=== PATIENT | female | born 1945 | race Caucasian/White ===

== ENCOUNTER → 2016-07-17 | Outpatient (CLI) | payer OTHER ==
[2015-05-01 06:33] VITALS: BP 150/71
[2016-07-17 08:27] LABS: BASOPHILS % (AUTO) 0.7 % (0.2-1.0); EOSINOPHILS # (AUTO) 0.2 x10^3/uL (0.0-0.2); EOSINOPHILS % (AUTO) 3.3 % (0.9-2.9); HEMATOCRIT 41.8 % (36.0-47.0); HEMOGLOBIN 14.1 g/dL (12.0-16.0); LYMPHOCYTES # (AUTO) 1.7 X10^3/uL (1.3-2.9); LYMPHOCYTES % (AUTO) 26.8 % (21.0-51.0); MEAN CORPUSCULAR HEMOGLOBIN 29.3 pg (27.0-34.0); MEAN CORPUSCULAR HGB CONC 33.8 g/dL (33.0-35.0); MEAN CORPUSCULAR VOLUME 86.7 fL (80.0-100.0); MEAN PLATELET VOLUME 7.6 fL (7.4-11.0); MONOCYTES # (AUTO) 0.5 x10^3/uL (0.3-0.8); MONOCYTES % (AUTO) 7.1 % (0.0-13.0); NEUTROPHILS % (AUTO) 62.1 % (42.0-75.0); PLATELET COUNT 233 X10^3/uL (150.0-450.0); RED BLOOD COUNT 4.82 X10^6/uL (3.5-5.4); RED CELL DISTRIBUTION WIDTH 13.2 % (11.6-16.5); WHITE BLOOD COUNT 6.5 X10^3/uL (3.6-10.0)
[2016-07-17 08:47] LABS: ALANINE AMINOTRANSFERASE 23 Units/L (12-78); ALBUMIN 3.4 g/dL (3.4-5.0); ALKALINE PHOSPHATASE 64 Units/L (46-116); ASPARTATE AMINO TRANSFERASE 18 Units/L (15-37); BILIRUBIN,DIRECT 0.12 mg/dL (0-0.2); BLOOD UREA NITROGEN 12 mg/dL (7-18); CALCIUM 9.3 mg/dL (8.5-10.1); CARBON DIOXIDE 31.8 mmol/L (21-32); CHLORIDE 104 mmol/L (98-107); CHOL/HDL RATIO 4.9 (0.0-5.0); CHOLESTEROL 202 mg/dL (0-200); CREATININE 0.79 mg/dL (0.55-1.02); GLUCOSE 99 mg/dL (65-99); HDL CHOLESTEROL 41 mg/dL (40-60); SODIUM 144 mmol/L (136-145); T4 (THYROXINE) 11.2 ug/dL (4.7-13.3); TOTAL PROTEIN 7.7 g/dL (6.4-8.2); TRIGLYCERIDES 134 mg/dL (0-150); TSH (3RD GENERATION) 2.406 uIU/mL (0.358-3.74); eGFR BLACK RACES > 60 (>60); eGFR NON BLACK RACES > 60 (>60)
== END ==
LOC: LAB 08:04
PROVIDERS: ATTEND Internal Medicine Cardiovascular Disease
DX: R42 Dizziness and giddiness (principal); I10 Essential (primary) hypertension; Z79.899 Other long term (current) drug therapy
CPT/HCPCS: 36415; 80048; 80061; 80076; 84436; 84443; 85025

== ENCOUNTER → 2016-08-20 | Outpatient (CLI) | payer OTHER ==
[2015-05-01 06:33] VITALS: BP 150/71
--- NOTE | 2016-08-20 11:11 | RAD ---
HISTORY: Pain left hip, nontraumatic Study: Left hip two views, AP pelvis Comparison: None Findings: A single frontal view of the pelvis demonstrates the pelvic ring to be intact. No evidence for acut e cortical disruption or dislocation of the hip can be observed. Frog leg views of the hip fails to demonstrate evidence for fracture or significant joint abnormality. Impression: 1. Negative exam. Reported By:
--- NOTE | 2016-08-21 10:08 | RAD ---
HISTORY: Low back pain and lumbar spondylosis Study: Three views of the lumbar spine Comparison: None Findings: Images demonstrate 5 non rib-bearing lumbar vertebral bodies. Levoscoliosis of the lumbar spine is n oted. The visualized bony structures demonstrate diffuse osteopenia. Allowing for the limitations of osteopenia and scoliosis the lumbar vertebral body heights are relatively maintained. Degenerative facet changes are seen throughout the lumbar spine. Multilevel intervertebral disc space narrowing a nd osteophytosis are demonstrated as well. Atherosclerotic changes are seen within the visualized ao rta. Surgical clips project over the right upper quadrant of the abdomen and right hemipelvis. A mod erate to large amount of stool is seen within the visualized colon. Correlation with CT and or MRI m ay be helpful as clinically indicated. IMPRESSION: 1. Multilevel degenerative changes as noted above. Reported By:
== END ==
LOC: RAD 10:18
PROVIDERS: ATTEND Physical Medicine & Rehabilitation
DX: M25.552 Pain in left hip (principal); M47.816 Spondylosis without myelopathy or radiculopathy, lumbar region
CPT/HCPCS: 72100; 73501

== ENCOUNTER → 2016-09-29 | Outpatient (CLI) | payer OTHER ==
[2015-05-01 06:33] VITALS: BP 150/71
[2016-09-29 10:39] LABS: ALANINE AMINOTRANSFERASE 21 Units/L (12-78); ALBUMIN 3.4 g/dL (3.4-5.0); ALKALINE PHOSPHATASE 64 Units/L (46-116); ASPARTATE AMINO TRANSFERASE 16 Units/L (15-37); BLOOD UREA NITROGEN 9 mg/dL (7-18); CALCIUM 8.6 mg/dL (8.5-10.1); CARBON DIOXIDE 29.7 mmol/L (21-32); CHLORIDE 105 mmol/L (98-107); COR NA(FOR HYPERGLY) 142 mmol/L (136-145); CREATININE 0.81 mg/dL (0.55-1.02); GLUCOSE 122 mg/dL (65-99); SODIUM 141 mmol/L (136-145); TOTAL PROTEIN 7.4 g/dL (6.4-8.2); eGFR BLACK RACES > 60 (>60); eGFR NON BLACK RACES > 60 (>60)
== END ==
LOC: LAB 10:00
PROVIDERS: ATTEND Nurse Practitioner Family
DX: R53.83 Other fatigue (principal)
CPT/HCPCS: 36415; 80053

== ENCOUNTER 2016-10-07 12:41 | Emergency (ER) | payer OTHER ==
[2016-10-07 12:46] VITALS: BMI 24.5
--- NOTE | 2016-10-07 13:32 | DR.GENAD ---
HPI - PCP Primary Care Physician: KRISTA - Complaint/Symptoms Chief Complaint Doctors Comments: Patient atdmits to cough for 4-6 months. Denies history of cardiopulmonary disease. Denies fever or vomitng..She does states that she saw a neurosurgoen on last week concerning her pains due to scoliosis which is causing severe pain. She was referred to orthopedic pain specialist for pain management. Chief Complaint:: HIGH BLOOD PRESSURE TODAY EVEN TOOK HER EMERGENCY HIGH BLOOD PRESSURE PILL. COUGHING AND CHEST TENDER FROM THE COUGHING. - Source History Provided: Patient - Mode of Arrival Mode of Arrival: Ambulatory - Timing Onset of Chief Complaint: 10/07/16 PMH - PMH Past Medical History: Yes Past Medical History: Anxiety, Hypertension Past Surgical History: Yes Surgical History: Cholecystectomy, Hysterectomy, Tonsillectomy - Family History History of Family Medical Conditions: Yes Family Medical History: Diabetes Mellitus, Heart Failure, Hypertension - Social History Does patient currently use any type of tobacco product: No Have you used tobacco products in the last 12 months: No Type of Tobacco Use: None Does any household member use tobacco: No Alcohol Use: None Do you use any recreational Drugs:: No Lives With: Family Lives Where: Home - infectious screening In the last 2 months have you had wt loss of >10#?: NO Have you had fever, night sweats or hemotysis?: No Have you traveled outside the country in the last 6 months?: No Isolation: Standard ROS - Review of Systems Constitutional: negative: Diaphoresis Eyes: No Symptoms Reported ENTM: No Symptoms Reported Respiratoy: No Symptoms Reported Cardiovascular: No Symptoms Reported Gastrointestinal/Abdominal: No Symptoms Reported Genitourinary: No Symptoms Reported Neurological: No Symptoms Reported Musculoskeletal: No Symptoms Reported Integumentary: No Symptoms Reported Hematologic/Lymphatic: No Symptoms Reported Endocrine: No Symptoms Reported Psychiatric: No Symptoms Reported All Other Systems: Reviewed and Negative PE - Vital Signs Vitals: Temperature 97.8 F Pulse Rate 92 Respiratory Rate 20 Blood Pressure [Right Arm] 150/71 Blood Pressure 199/106 O2 Sat by Pulse Oximetry 97 - General Limitations: No Limitations General Appearance: Alert, In No Apparent Distress - Head Head Exam: Normal Inspection, Atraumatic - Eyes Eye exam: Normal Appearance, PERRL, EOMI - ENT ENT Exam: Normal Exam External Ear Exam: Normal External Inspection TM/Canal Exam: Bilateral Normal Nose Exam: Normal Nose Exam Mouth Exam: Normal Inspection Throat Exam: Normal Inspection - Neck Neck Exam: Normal Inspection - Chest Chest Inspection: Normal Inspection - Respiratory Respiratory Exam: Normal Lung Sounds Bilat Respiratory Exam: Bilateral Clear to Auscultation - Cardiovascular Cardiovascular Exam: Regular Rate, Normal Rhythm - Abdominal Exam Abdominal Exam: Normal Inspection, Normal Bowel Sounds Abdominal Tenderness: negative: RUQ, RLQ, LUQ, LLQ, Epigastrium, Suprapubic, Diffuse, Mild, Moderate, Severe, Other - Extremities Extremities Exam: Normal Inspection - Back Back Exam: Normal Inspection - Neurologic Neurological Exam: Alert, Oriented X3, CN II-XII Intact - Psychiatric Psychiatric Exam: Normal Affect, Normal Mood - Skin Skin Exam: Warm, Dry, Intact ROR - Labs Reviewed Result Diagrams: 10/07/16 13:43 10/07/16 13:43 Laboratory: WBC 6.4 X10^3/uL (3.6-10.0) 10/07/16 13:43 RBC 4.75 X10^6/uL (3.5-5.4) 10/07/16 13:43 Hgb 14.1 g/dL (12.0-16.0) 10/07/16 13:43 Hct 41.1 % (36.0-47.0) 10/07/16 13:43 MCV 86.5 fL (80.0-100.0) 10/07/16 13:43 MCH 29.7 pg (27.0-34.0) 10/07/16 13:43 MCHC 34.4 g/dL (33.0-35.0) 10/07/16 13:43 RDW 13.5 % (11.6-16.5) 10/07/16 13:43 Plt Count 210 X10^3/uL (150.0-450.0) 10/07/16 13:43 MPV 8.1 fL (7.4-11.0) 10/07/16 13:43 Neut % 74.1 % (42.0-75.0) 10/07/16 13:43 Lymph % 17.7 % (21.0-51.0) L 10/07/16 13:43 [place] % 5.8 % (0.0-13.0) 10/07/16 13:43 Eos % 1.6 % (0.9-2.9) 10/07/16 13:43 Baso % 0.8 % (0.2-1.0) 10/07/16 13:43 Neut # 4.7 x10^3/uL (2.2-4.8) 10/07/16 13:43 Lymph # 1.1 X10^3/uL (1.3-2.9) L 10/07/16 13:43 [place] # 0.4 x10^3/uL (0.3-0.8) 10/07/16 13:43 Eos # 0.1 x10^3/uL (0.0-0.2) 10/07/16 13:43 Baso # 0.0 X10^3/uL (0.0-0.1) 10/07/16 13:43 Absolute Nucleated RBC 0.1 /100WBC 10/07/16 13:43 Sodium 143 mmol/L (136-145) 10/07/16 13:43 Corrected Sodium TNP 10/07/16 13:43 Potassium 3.7 mmol/L (3.5-5.1) 10/07/16 13:43 Chloride 107 mmol/L (98-107) 10/07/16 13:43 Carbon Dioxide 31.4 mmol/L (21-32) 10/07/16 13:43 BUN 9 mg/dL (7-18) 10/07/16 13:43 Creatinine 0.73 mg/dL (0.55-1.02) 10/07/16 13:43 Est GFR (MDRD) Af Amer > 60 (>60) 10/07/16 13:43 Est GFR (MDRD) Non-Af > 60 (>60) 10/07/16 13:43 Glucose 99 mg/dL (65-99) 10/07/16 13:43 Calcium 8.9 mg/dL (8.5-10.1) 10/07/16 13:43 Corrected Calcium 9.5 mg/dL (8.5-10.1) 10/07/16 13:43 Total Bilirubin 0.60 mg/dL (0.2-1.0) 10/07/16 13:43 AST 20 Units/L (15-37) 10/07/16 13:43 ALT 25 Units/L (12-78) 10/07/16 13:43 Alkaline Phosphatase 62 Units/L (46-116) 10/07/16 13:43 C-Reactive Protein 1.10 mg/L (0-3.0) 10/07/16 13:43 Total Protein 7.2 g/dL (6.4-8.2) 10/07/16 13:43 Albumin 3.3 g/dL (3.4-5.0) L 10/07/16 13:43 Globulin 3.9 g/dL (2.5-4.5) 10/07/16 13:43 Albumin/Globulin Ratio 0.8 Ratio (1.1-2.1) L 10/07/16 13:43 - XRAY XRAY Interpreted by: Radiologist (Chest No cardiopulmonary disease.) - Diagnosis Discharge Problem: Cough - Discharge Plan Condition: Stable - Follow ups/Referrals Follow ups/Referrals: ALEIDA VELASCO [Primary Care Provider] - 3 days - Instructions
[2016-10-07 13:56] LABS: BASOPHILS % (AUTO) 0.8 % (0.2-1.0); EOSINOPHILS # (AUTO) 0.1 x10^3/uL (0.0-0.2); EOSINOPHILS % (AUTO) 1.6 % (0.9-2.9); HEMATOCRIT 41.1 % (36.0-47.0); HEMOGLOBIN 14.1 g/dL (12.0-16.0); LYMPHOCYTES # (AUTO) 1.1 X10^3/uL (1.3-2.9); LYMPHOCYTES % (AUTO) 17.7 % (21.0-51.0); MEAN CORPUSCULAR HEMOGLOBIN 29.7 pg (27.0-34.0); MEAN CORPUSCULAR HGB CONC 34.4 g/dL (33.0-35.0); MEAN CORPUSCULAR VOLUME 86.5 fL (80.0-100.0); MEAN PLATELET VOLUME 8.1 fL (7.4-11.0); MONOCYTES # (AUTO) 0.4 x10^3/uL (0.3-0.8); MONOCYTES % (AUTO) 5.8 % (0.0-13.0); NEUTROPHILS # (AUTO) 4.7 x10^3/uL (2.2-4.8); NEUTROPHILS % (AUTO) 74.1 % (42.0-75.0); PLATELET COUNT 210 X10^3/uL (150.0-450.0); RED BLOOD COUNT 4.75 X10^6/uL (3.5-5.4); RED CELL DISTRIBUTION WIDTH 13.5 % (11.6-16.5); WHITE BLOOD COUNT 6.4 X10^3/uL (3.6-10.0)
--- NOTE | 2016-10-07 13:59 | RAD ---
HISTORY: Hypertension, chronic cough Study: Chest two-view Comparison: May 01, 2015 Findings: The trachea is midline. The cardiac silhouette is unremarkable. The lungs are clear without focal infiltrate or effusion. The bony thorax is unremarkable with the exception of dextroscoliosis of th e lower thoracic spine.. IMPRESSION: 1. No acute cardiopulmonary disease. Reported By:
[2016-10-07 14:03] LABS: ALANINE AMINOTRANSFERASE 25 Units/L (12-78); ALBUMIN 3.3 g/dL (3.4-5.0); ALKALINE PHOSPHATASE 62 Units/L (46-116); ASPARTATE AMINO TRANSFERASE 20 Units/L (15-37); BLOOD UREA NITROGEN 9 mg/dL (7-18); CALCIUM 8.9 mg/dL (8.5-10.1); CARBON DIOXIDE 31.4 mmol/L (21-32); CHLORIDE 107 mmol/L (98-107); COR CA(FOR HYPOALB) 9.5 mg/dL (8.5-10.1); CREATININE 0.73 mg/dL (0.55-1.02); GLUCOSE 99 mg/dL (65-99); SODIUM 143 mmol/L (136-145); TOTAL PROTEIN 7.2 g/dL (6.4-8.2); eGFR BLACK RACES > 60 (>60); eGFR NON BLACK RACES > 60 (>60)
[2016-10-07 14:42] VITALS: BP 180/79
== END 2016-10-07 14:55 | disposition home or self-care (01) ==
LOC: ER 12:54
DX: R05 Cough (principal)
CPT/HCPCS: 36415; 71020; 80053; 85025; 86140; 99282; 99283

== ENCOUNTER 2016-11-27 16:55 | Emergency (ER) | payer OTHER ==
[2016-11-27 17:06] VITALS: BP 164/80; BMI 23.1
--- NOTE | 2016-11-27 17:58 | DR.GENAD ---
HPI - PCP Primary Care Physician: KRISTA - Complaint/Symptoms Chief Complaint Doctors Comments: I agree with statement written. Chief Complaint:: CHEST SORE AND TENDER, RUNNING LOW GRADE TEMP AT NIGHT Self Treatment fo Chief Complaint: PT STATES THIS HAS BEEN GOING ON ABOUT 5 DAYS , PT WENT TO SEE [facility] THIS AM BUT UNABLE TO PERFORM TEST HE WAS GOING TO DO BECAUSE OF HER CHEST SORENESS - Source History Provided: Patient - Mode of Arrival Mode of Arrival: Ambulatory - Timing Onset of Chief Complaint: 11/27/16 PMH - PMH Past Medical History: Yes Past Medical History: Depression, Anxiety, GERD, Hypertension Past Medical History Comment: HIATAL HERNIA Past Surgical History: Yes Surgical History: Cholecystectomy, Hysterectomy, Tonsillectomy - Family History History of Family Medical Conditions: Yes Family Medical History: Diabetes Mellitus, Heart Failure, Hypertension - Social History Does patient currently use any type of tobacco product: No Have you used tobacco products in the last 12 months: No Type of Tobacco Use: None Does any household member use tobacco: No Alcohol Use: None Do you use any recreational Drugs:: No Lives With: Alone Lives Where: Home - infectious screening In the last 2 months have you had wt loss of >10#?: NO Have you had fever, night sweats or hemotysis?: No Have you traveled outside the country in the last 6 months?: No Isolation: Standard ROS - Review of Systems Constitutional: No Symptoms Reported Eyes: No Symptoms Reported ENTM: No Symptoms Reported Respiratoy: No Symptoms Reported Cardiovascular: Other (GIII/Iv holosystolic murmur) Gastrointestinal/Abdominal: No Symptoms Reported Genitourinary: No Symptoms Reported Neurological: No Symptoms Reported Musculoskeletal: No Symptoms Reported Integumentary: No Symptoms Reported Hematologic/Lymphatic: No Symptoms Reported Endocrine: No Symptoms Reported Psychiatric: No Symptoms Reported All Other Systems: Reviewed and Negative PE - Vital Signs Vitals: Temperature 98.6 F Pulse Rate 90 Respiratory Rate 20 Blood Pressure [Right Arm] 134/63 Blood Pressure [Right Arm] 180/79 Blood Pressure 164/80 O2 Sat by Pulse Oximetry 96 - General Limitations: No Limitations General Appearance: Alert, In No Apparent Distress - Head Head Exam: Normal Inspection, Atraumatic - Eyes Eye exam: Normal Appearance, PERRL, EOMI - ENT ENT Exam: Normal Exam External Ear Exam: Normal External Inspection TM/Canal Exam: Bilateral Normal Nose Exam: Normal Nose Exam Mouth Exam: Normal Inspection - Neck Neck Exam: Normal Inspection, Full ROM - Chest Chest Inspection: Normal Inspection - Respiratory Respiratory Exam: Normal Lung Sounds Bilat Respiratory Exam: Bilateral Clear to Auscultation - Cardiovascular Cardiovascular Exam: Regular Rate - Abdominal Exam Abdominal Exam: Normal Inspection Abdominal Tenderness: negative: RUQ, RLQ, LUQ, LLQ, Epigastrium, Suprapubic, Diffuse, Mild, Moderate, Severe, Other - Extremities Extremities Exam: Normal Inspection - Back Back Exam: Normal Inspection - Neurologic Neurological Exam: Alert, Oriented X3, CN II-XII Intact - Psychiatric Psychiatric Exam: Normal Affect, Normal Mood - Skin Skin Exam: Warm, Dry ROR - Labs Reviewed Result Diagrams: 11/27/16 18:06 11/27/16 18:06 Laboratory: WBC 6.6 X10^3/uL (3.6-10.0) 11/27/16 18:06 RBC 5.12 X10^6/uL (3.5-5.4) 11/27/16 18:06 Hgb 15.3 g/dL (12.0-16.0) 11/27/16 18:06 Hct 44.4 % (36.0-47.0) 11/27/16 18:06 MCV 86.7 fL (80.0-100.0) 11/27/16 18:06 MCH 29.8 pg (27.0-34.0) 11/27/16 18:06 MCHC 34.4 g/dL (33.0-35.0) 11/27/16 18:06 RDW 13.2 % (11.6-16.5) 11/27/16 18:06 Plt Count 240 X10^3/uL (150.0-450.0) 11/27/16 18:06 MPV 7.9 fL (7.4-11.0) 11/27/16 18:06 Neut % 60.4 % (42.0-75.0) 11/27/16 18:06 Lymph % 28.2 % (21.0-51.0) 11/27/16 18:06 [place] % 8.3 % (0.0-13.0) 11/27/16 18:06 Eos % 2.6 % (0.9-2.9) 11/27/16 18:06 Baso % 0.5 % (0.2-1.0) 11/27/16 18:06 Neut # 4.0 x10^3/uL (2.2-4.8) 11/27/16 18:06 Lymph # 1.9 X10^3/uL (1.3-2.9) 11/27/16 18:06 [place] # 0.5 x10^3/uL (0.3-0.8) 11/27/16 18:06 Eos # 0.2 x10^3/uL (0.0-0.2) 11/27/16 18:06 Baso # 0.0 X10^3/uL (0.0-0.1) 11/27/16 18:06 Absolute Nucleated RBC 0.0 /100WBC 11/27/16 18:06 Sodium 143 mmol/L (136-145) 11/27/16 18:06 Corrected Sodium 144 mmol/L (136-145) 11/27/16 18:06 Potassium 3.7 mmol/L (3.5-5.1) 11/27/16 18:06 Chloride 104 mmol/L (98-107) 11/27/16 18:06 Carbon Dioxide 30.6 mmol/L (21-32) 11/27/16 18:06 BUN 13 mg/dL (7-18) 11/27/16 18:06 Creatinine 0.87 mg/dL (0.55-1.02) 11/27/16 18:06 Est GFR (MDRD) Af Amer > 60 (>60) 11/27/16 18:06 Est GFR (MDRD) Non-Af > 60 (>60) 11/27/16 18:06 Glucose 122 mg/dL (65-99) H 11/27/16 18:06 Calcium 9.3 mg/dL (8.5-10.1) 11/27/16 18:06 Corrected Calcium TNP 11/27/16 18:06 Total Bilirubin 0.30 mg/dL (0.2-1.0) 11/27/16 18:06 AST 17 Units/L (15-37) 11/27/16 18:06 ALT 25 Units/L (12-78) 11/27/16 18:06 Alkaline Phosphatase 76 Units/L (46-116) 11/27/16 18:06 C-Reactive Protein 1.00 mg/L (0-3.0) 11/27/16 18:06 Total Protein 7.7 g/dL (6.4-8.2) 11/27/16 18:06 Albumin 3.6 g/dL (3.4-5.0) 11/27/16 18:06 Globulin 4.1 g/dL (2.5-4.5) 11/27/16 18:06 Albumin/Globulin Ratio 0.9 Ratio (1.1-2.1) L 11/27/16 18:06 - XRAY XRAY Interpreted by: Radiologist (Chest: No acute abnormality) - Diagnosis Discharge Problem: Myositis Qualifiers: Myositis type: unspecified type Myositis location: unspecified site Qualified Code(s): M60.9 - Myositis, unspecified - Discharge Plan Condition: Stable - Follow ups/Referrals Follow ups/Referrals: ALEIDA VELASCO [Primary Care Provider] - 3 days - Instructions
[2016-11-27 18:22] LABS: BASOPHILS % (AUTO) 0.5 % (0.2-1.0); EOSINOPHILS # (AUTO) 0.2 x10^3/uL (0.0-0.2); EOSINOPHILS % (AUTO) 2.6 % (0.9-2.9); HEMATOCRIT 44.4 % (36.0-47.0); HEMOGLOBIN 15.3 g/dL (12.0-16.0); LYMPHOCYTES # (AUTO) 1.9 X10^3/uL (1.3-2.9); LYMPHOCYTES % (AUTO) 28.2 % (21.0-51.0); MEAN CORPUSCULAR HEMOGLOBIN 29.8 pg (27.0-34.0); MEAN CORPUSCULAR HGB CONC 34.4 g/dL (33.0-35.0); MEAN CORPUSCULAR VOLUME 86.7 fL (80.0-100.0); MEAN PLATELET VOLUME 7.9 fL (7.4-11.0); MONOCYTES # (AUTO) 0.5 x10^3/uL (0.3-0.8); MONOCYTES % (AUTO) 8.3 % (0.0-13.0); NEUTROPHILS % (AUTO) 60.4 % (42.0-75.0); PLATELET COUNT 240 X10^3/uL (150.0-450.0); RED BLOOD COUNT 5.12 X10^6/uL (3.5-5.4); RED CELL DISTRIBUTION WIDTH 13.2 % (11.6-16.5); WHITE BLOOD COUNT 6.6 X10^3/uL (3.6-10.0)
[2016-11-27 18:31] LABS: ALANINE AMINOTRANSFERASE 25 Units/L (12-78); ALBUMIN 3.6 g/dL (3.4-5.0); ALKALINE PHOSPHATASE 76 Units/L (46-116); ASPARTATE AMINO TRANSFERASE 17 Units/L (15-37); BLOOD UREA NITROGEN 13 mg/dL (7-18); CALCIUM 9.3 mg/dL (8.5-10.1); CARBON DIOXIDE 30.6 mmol/L (21-32); CHLORIDE 104 mmol/L (98-107); COR NA(FOR HYPERGLY) 144 mmol/L (136-145); CREATININE 0.87 mg/dL (0.55-1.02); SODIUM 143 mmol/L (136-145); TOTAL PROTEIN 7.7 g/dL (6.4-8.2); eGFR BLACK RACES > 60 (>60); eGFR NON BLACK RACES > 60 (>60)
--- NOTE | 2016-11-27 18:58 | RAD ---
HISTORY: Chest soreness Study: PA and lateral views of the chest. Comparison: 10/07/2016 Findings: The cardiomediastinal silhouette is normal. No focal consolidations, pleural effusions or pneumothora x. Redemonstration of levoscoliosis of the thoracolumbar spine. IMPRESSION: 1. No acute cardiopulmonary process. Reported By:
== END 2016-11-27 19:29 | disposition home or self-care (01) ==
LOC: ER 17:08
DX: R07.89 Other chest pain (principal)
CPT/HCPCS: 36415; 71020; 80053; 85025; 86140; 99282